=== PATIENT | female | born 1990 | race Caucasian/White ===

== ENCOUNTER 2021-01-13 12:34 | Observation (INO) | payer OTHER, SELFPAY ==
--- NOTE | ~2021-01-13 | US_ITS ---
US OB limited 01/13/2021 14:07 Indication: Right upper quadrant abdominal pain. well-being. Procedure: High-resolution Limited obstetrical ultrasound Comparison: 01/13/2021 Findings: There is a single living intrauterine in breech presentation. heart rate is 159 BPM. Placenta is posterior without previa. Amniotic fluid is subjectively normal. Impression: 1: Single living intrauterine in breech presentation. Reviewed, dictated and finalized at location A. ICATION SUPPORT DEVELOPER Impression: 1: Single living intrauterine in breech presentation.
--- NOTE | ~2021-01-13 | US_ITS ---
EXAMINATION: US right upper quadrant DATE: 01/13/2021 14:07 INDICATION: Right upper quadrant abdominal pain TECHNIQUE: Multiple grayscale and Doppler ultrasound images of the abdomen were obtained. COMPARISON: None FINDINGS: The pancreatic head and body are normal in appearance. The pancreatic tail is not visualized. Visual ized proximal to mid inferior vena cava is normal. Liver has normal echogenicity and contour, with a smooth surface. No liver lesion identified. No intrahepatic biliary duct dilation suspected. Portal v enous flow was seen in the hepatopetal, normal direction and has normal Doppler waveform. The gallbla dder is normal in appearance. There is no cholelithiasis. The common bile duct measures 3 mm, which is normal. Sonographic Berry sign was reported as negative by the retail manager. IMPRESSION: 1. Normal right upper quadrant ultrasound. Reviewed, dictated and finalized at location A. K WELDER
[2021-01-13 12:52] VITALS: BP 135/81; PULSE 96
[2021-01-13 13:01] VITALS: BP 138/90; PULSE 103
--- NOTE | 2021-01-13 13:14 | PM.IMHP ---
H&P: HPI History of Present Illness Date/Time: 01/13/21 13:14 Chief Complaint: ruq pain Narrative: Ramonita Rogers is a 30 year old female admitted to ER complaining of right upper quadrant pain. She is in the middle of her 2nd trimester. She states she had a 14 week ultrasound confirming dates. She denies bleeding or loss of fluid. The pain is right upper quadrant and comes and goes. heart tones were found here as she had felt no movement Review of Systems Review of Systems: All systems reviewed & are unremarkable except as noted in HPI and below Meds Vital Signs Vital Signs - 24 hr 01/13/21 12:52 01/13/21 13:01 Pulse Rate 96 103 H Blood Pressure 135/81 138/90 Exam Const: General: no acute distress Eyes: General: appearance normal, both eyes and all related structures Neck: Neck: supple and no JVD Thyroid: thyroid normal Resp: Effort & Inspection: normal respiratory effort Auscultation: clear to auscultation bilaterally Cardio: Rate: regular rate Rhythm: regular rhythm GI: Inspection: normal to inspection GI Palp: Yes abdominal tenderness (ruq) Auscultation: normal bowel sounds : General: Yes bladder normal to palpation External Female Exam: normal external appearance Speculum Exam - Vagina: normal vaginal discharge and No vaginal bleeding Speculum Exam - Cervix: nontender Bimanual exam- vagina & uterus: bladder normal to palpation, No Cervical tenderness present and enlarged ( FHTs found and within normal limits) OB/external & speculum: No vaginal bleeding Skin: General skin exam: no rashes or lesions noted Extrem: General: normal to inspection and no edema Psych: Mental Status: mental status grossly normal Affect: normal affect Assessment and Plan Additional Plan impression: 2Nd trimester with right upper quadrant pain Plan: Treat nausea and vomiting. Ultrasound the baby and the right upper quadrant. Check labs
[2021-01-13 13:16] VITALS: BP 123/78; PULSE 89
[2021-01-13 13:31] VITALS: BP 122/91; PULSE 97
[2021-01-13 13:43] LABS: Basophils Percent Auto 0.2 % (0.2-1.2); Eosinophils Percent Auto 0.3 % (0-4.4); Hematocrit 35.6 % (37.0-47.0); Hemoglobin 12.4 g/dL (12.0-15.0); Immature Granulocyte Absolute 0.06 K/mm3 (0.00-0.031); Immature Granulocyte Percent A 0.5 % (0-0.5); Lymphocytes Absolute Auto 1.42 K/mm3 (0.9-3.2); Mean Corpuscular HGB Conc 34.8 g/dl (32-36); Mean Platelet Volume 9.2 fl (7.4-10.4); Monocytes Absolute Auto 0.3 K/mm3 (0.1-0.6); Monocytes Percent Auto 2.1 % (2.6-8.5); Neutrophils Percent Auto 84.9 % (45.5-73.1); Platelet Count Result 230 k/mm3 (150-375); Red Cell Distribution Width 12.7 % (11.5-14.5); White Blood Count 11.8 K/mm3 (4.5-10.0)
[2021-01-13 13:46] VITALS: BP 102/59; PULSE 93
[2021-01-13 13:47] LABS: Add Urine Microscopic? YES; Appearance Urine Clear (Clear); Bilirubin Urine Negative (Negative); Blood Urine Negative (Negative); Color Urine Yellow (Yellow); Glucose Urine UA Negative (Negative); Ketones Urine 1+ mg/dL (Negative); Leukocyte Esterase Ur Negative LEU/UL (Negative); Mucus Urine Moderate /lpf; Nitrate Urine Negative (Negative); Protein Urine Negative (Negative); RBC Urine 0-2 /hpf (0-2); Specific Grav Ur 1.015 (1.001-1.035); Squamous Epithelial Cell Urine Many /hpf (Few); Urobilinogen Urine Negative mg/dL (<2.0); WBC Urine 0-3 /hpf
[2021-01-13] MEDS: ONDANSETRON HCL ODT 4 MG TABLET PO (13:48)
[2021-01-13] MEDS: FAMOTIDINE 20 MG TABLET PO (13:48)
[2021-01-13 13:55] LABS: Alanine Aminotransferase 15 U/L (4-35); Albumin Level 3.7 g/dL (3.5-5.1); Alkaline Phosphatase 40 U/L (38-126); Anion Gap 7 mmol/L (8-16); Aspartate Amino Transferase 25 U/L (14-36); Bilirubin,Total 0.5 mg/dL (0.2-1.3); Blood Urea Nitrogen 10 mg/dL (7-17); Calcium 8.3 mg/dL (8.4-10.2); Carbon Dioxide 23 mmol/L (22-30); Chloride 100 mmol/L (98-107); Estimated Glomerular Filt Rate > 60; Glucose 95 mg/dL (65-105); Potassium 4.1 mmol/L (3.4-5.0); Sodium 130 mmol/L (137-145)
--- NOTE | 2021-01-13 14:39 | PC.NURSE ---
1410--Pt reports pain 2/10 and manageable.
--- NOTE | 2021-01-13 14:41 | PC.NURSE ---
1430--Reported lab and US results to Dr. Liliam Shearer. DC orders given
--- NOTE | 2021-01-13 14:44 | OBADM ---
This patient, Ramonita Rogers, admitted to the OB room [facility] Post 111 for observation. Patient/family oriented to hospital policies and general routines including ID bracelet, bed and alarms, visiting hours, pain management, procedures, bathroom and other care routines, personal items, smoking policy, room service/diet, and visiting hours. Patient/Family are encouraged to report perceived risks to care and to ask questions if they do not understand what they are told or what they should do.
--- NOTE | 2021-01-13 14:48 | PC.NURSE ---
1245--Doppled FHT's at 145-155
[2021-01-13] MEDS: ACETAMINOPHEN 500 MG TABLET 1000 MG PO (14:55)
== END 2021-01-13 15:00 | disposition home or self-care (01) ==
PROVIDERS: Admitting Provider Obstetrics & Gynecology; PCP Family Medicine; Visit Provider Obstetrics & Gynecology
DX: O26.892 Other specified pregnancy related conditions, second trimester (principal); R10.11 Right upper quadrant pain; Z3A.00 Weeks of gestation of pregnancy not specified
CPT/HCPCS: 36415; 76705; 76815; 80053; 81001; 85025; A9270; G0378; G0379

== ENCOUNTER 2023-10-10 14:29 | Outpatient (CLI) | payer OTHER, SELFPAY ==
[2023-10-10 19:42] LABS: Mean Corpuscular HGB Conc 31.8 g/dl (32-36); Mean Corpuscular Hemoglobin 29.8 pg (26-34); Mean Corpuscular Volume 93.6 fl (80-100); Mean Platelet Volume 9.6 fl (7.4-10.4); Platelet Count Result 303 k/mm3 (150-375); Red Cell Distribution Width 12.5 % (11.5-14.5); White Blood Count 7.6 K/mm3 (4.5-10.0)
[2023-10-10 19:43] LABS: LDL Cholesterol Direct 112 mg/dL
[2023-10-10 20:28] LABS: Alanine Aminotransferase 27 U/L (6-35); Albumin Level 4.6 g/dL (3.5-5.1); Alkaline Phosphatase 51 U/L (38-126); Anion Gap 12 mmol/L (8-16); Aspartate Amino Transferase 36 U/L (14-36); Bilirubin,Total 0.6 mg/dL (0.2-1.3); Blood Urea Nitrogen 19 mg/dL (7-17); Calcium 9.9 mg/dL (8.4-10.2); Carbon Dioxide 26 mmol/L (22-30); Chloride 103 mmol/L (98-107); Cholesterol 210 mg/dL (0-200); Estimated Glomerular Filt Rate > 60; Glucose 92 mg/dL (65-110); HDL Direct 56 mg/dL; Potassium 4.2 mmol/L (3.4-5.0); Sodium 141 mmol/L (137-145); Triglycerides 206 mg/dL (<150)
== END 2023-10-10 14:30 | disposition home or self-care (01) ==
LOC: ANHBWCLAB 14:34
PROVIDERS: PCP Nurse Practitioner Adult Health; Visit Provider Nurse Practitioner Adult Health
DX: Z13.9 Encounter for screening, unspecified (principal)
CPT/HCPCS: 36415; 80053; 80061; 84443; 85027

== ENCOUNTER 2024-09-20 07:42 | Outpatient (CLI) | payer OTHER, SELFPAY ==
--- NOTE | ~2024-09-20 | US_ITS ---
US right upper quadrant INDICATION: Right upper quadrant pain PROCEDURE: Realtime right upper abdominal ultrasound. COMPARISON: No prior studies for comparison. FINDINGS: The pancreas is normal without focal mass or pancreatic ductal dilation. Liver echotexture is normal without focal mass or intrahepatic biliary dilatation. There is normal directional flow i n the portal vein. The gallbladder is normal without stones, gallbladder wall thickening or pericholecystic fluid. Comm on bile duct measures 2 mm. No sonographic Berry's sign. Right renal echotexture is unremarkable. IMPRESSION: 1: Normal limited abdominal ultrasound. Reviewed, dictated and finalized at location B.
== END 2024-09-20 07:43 | disposition home or self-care (01) ==
LOC: MICIMG 07:43
PROVIDERS: PCP Nurse Practitioner Adult Health; Visit Provider Surgery
DX: R10.11 Right upper quadrant pain (principal)
CPT/HCPCS: 76705